=== PATIENT | female | born 1970 | race Caucasian/White ===

== ENCOUNTER → 2018-10-10 16:00 | Outpatient (CLI) | payer OTHER, SELFPAY ==
--- NOTE | 2018-10-10 | DI.MRI.S_ITS ---
PROCEDURE: MR PELVIS WO/W CON INDICATIONS: Abnormal uterine and vaginal bleeding TECHNIQUE: Coronal HASTE, sagittal breath-hold T2 FSE; axial T1 FSE with and without fat saturation through the pelvis. Optional long- and short-axis uterine nonbreath-hold T2 FSE through the uterus. Sagittal or axial dynamic VIBE during administration of contrast. Post-contrast axial or coronal VIBE/2-D FLASH with fat saturation from the iliac crests to the symphysis. Optional diffusion weighted imaging and ADC may be performed. COMPARISON: [facility], , US PELVIS/TRANSVAG/DOPPLER, 09/22/2018, 12:40. FINDINGS: Image quality: There is motion artifact limiting evaluation. Uterus: Uterus is elongated in appearance. Endometrium is normal in thickness with mild nodularity along its contours. Junctional zone is normal in thickness at 12 mm or less. There are a few small nabothian cysts. Follow contrast administration, there is prominent enhancement within the uterine fundus involving the junctional zone, myometrium and serosal surface. Adnexa: The ovaries are not well visualized likely reflecting atrophy. No adnexal masses. Urinary system: There is partial distention of the urinary bladder which demonstrates mild thickening and a trabeculated appearance. Distal ureters are non distended. Urethra appears normal in morphology. Nodes and vessels: No pelvic or inguinal adenopathy by size criteria. Iliac vessels are normal in size. Bowel and peritoneum: No pathologic free pelvic fluid. Inferior colon and small bowel loops are normal in caliber. Soft tissues: No inguinal hernias. No findings of pelvic floor incompetence in the absence of provocation. Bones: Marrow demonstrates normal overall signal. IMPRESSION: 1. Preferential enhancement of the uterus in the fundus without a discrete mass identified. The finding is nonspecific and may represent mild infectious or inflammatory process. Recommend correlation clinically. 2. Slight nodularity of the endometrial contours without discrete mass identified. The finding may also reflect an inflammatory or infectious endometritis. Consider further evaluation with sonohysterography or hysteroscopy. Dictated by: Damian Fountain M.D. on 10/10/2018 at 17:51 Approved by: Damian Fountain M.D. on 10/10/2018 at 18:09
== END ==
PROVIDERS: PCP Internal Medicine; Visit Provider Internal Medicine
DX: N93.8 Other specified abnormal uterine and vaginal bleeding (principal)
CPT/HCPCS: 72197; A9579

== ENCOUNTER 2018-12-08 12:16 | Day surgery (SDC) | payer OTHER, SELFPAY ==
[2018-12-08 13:26] VITALS: BP 117/79; PULSE 68; RESP 15; TEMP 36.3; O2SAT 98; BMI 27.1
--- NOTE | 2018-12-08 13:52 | PM.HP.1 ---
History of Present Illness History of Present Illness Date Patient Seen: 12/08/18 Time Patient Seen: 13:52 Chief complaint: [id number] Narrative: Patient presents for colorectal screening. They have never had any previous examination for such. Two episodes of blood per rectum several months ago nothing further. No nausea, vomiting, abdominal pain, loss of appetite, unexplained weight loss, change in bowel habits, diarrhea, constipation. Patient History Medical History (Acute) delivery delivered (Acute) Surgical History History of appendectomy (Acute) Family History (Updated 12/08/18 @ 13:50 by Makenzie Peña RN) Father Heart attack Mother CVA (cerebral vascular accident) Social History household members: spouse Family & Social History Family History Father Heart attack Mother CVA (cerebral vascular accident) Social History: household members spouse Meds Home Medications and Allergies Home Medications Medication Instructions Recorded Confirmed Type Aspir-81 81 mg PO DAILY 12/08/18 12/08/18 History lisinopril 5 mg PO DAILY 12/08/18 12/08/18 History simvastatin 40 mg PO DAILY 12/08/18 12/08/18 History Allergies Allergy/AdvReac Type Severity Reaction Status Date / Time nicotine Allergy Severe Hives Verified 12/08/18 13:52 bupropion [From Zyban] Allergy Intermediate Rash Verified 12/08/18 13:53 varenicline [From Chantix] Allergy Intermediate Rash Verified 12/08/18 13:54 Review of Systems Review of Systems ROS Unobtainable: All systems reviewed & are unremarkable except as noted in HPI and below Exam Vital Signs (past 8 hours): - 12/08/18 13:26 Temperature 97.3 F L Pulse Rate 68 Respiratory Rate 15 Blood Pressure 117/79 Pulse Oximetry 98 Oxygen Delivery Method Room Air Narrative Exam Narrative: General-adult female no acute distress, well nourished HEENT-moist mucous membranes, no scleral icterus Neck-supple with full range of motion, no lymphadenopathy Chest- no labored respirations, clear to auscultation bilaterally Cardiac-regular rate and rhythm Abdomen-soft, nontender, non distended Extremities-no edema, warm well perfused Neurological-alert and oriented x 3. No focal deficits Skin-normal temperature and turgor, no rashes or ulcers Assessment & Plan Assessment and plan (1) Encounter for screening colonoscopy: Current visit: Yes Status: Acute Assessment & Plan narrative: Patient is requiring colorectal screening. Colonoscopy is recommended. Technical details were discussed. Risks, benefits, alternatives explained. Risks including but not limited to sedation, aspiration, bleeding, pain, missed lesion, incomplete examination, need for further radiographic studies, colonic perforation, need for major abdominal surgery, and all attendant risks major surgery were discussed at length. All questions were answered to their satisfaction, and they voiced understanding.
[2018-12-08] MEDS: fentaNYL 250 MCG/5 ML INJ IV (14:20)
[2018-12-08] MEDS: MIDAZOLAM 5 MG/5 ML VIAL IV (14:25)
[2018-12-08 14:44] VITALS: BP 104/68; PULSE 56; RESP 18; TEMP 36.5; O2SAT 99
[2018-12-08 14:49] VITALS: BP 112/77; PULSE 64; RESP 12; O2SAT 100
[2018-12-08 14:54] VITALS: BP 110/70; PULSE 60; RESP 14; O2SAT 100
[2018-12-08 14:59] VITALS: BP 117/78; PULSE 56; RESP 15; O2SAT 100
[2018-12-08 15:42] VITALS: BP 129/80; PULSE 56; RESP 16; TEMP 36.4; O2SAT 100
--- NOTE | 2018-12-08 15:46 | PM.OP.ENDO ---
Operative Date/Time/Diagnoses Date of procedure: 12/08/18 Time of procedure: 15:46 Pre-op diagnosis: rectal bleeding Post-op diagnosis: same Procedure & Clinicians Study performed: Colonoscopy Same procedure as scheduled: Yes Indications: 48-year-old female with 2 episodes of rectal bleeding presents for screening colonoscopy. Surgeon: Chico Velazquez Procedure Notes SCOAP/Timeout: Performed Procedure in detail: A digital rectal exam was performed which was negative for masses. There was no evidence of external hemorrhoids. The scope was carefully inserted into the rectum and advanced with colon to the ileocecal valve. Upon reaching the of valve the scope was then carefully withdrawn. The quality of the prep was excellent. There were no masses polyps or diverticulosis. The scope was retroflexed within the rectum and there was no evidence of internal hemorrhoids. Scope withdrawal time: 8 Sedation minutes: 23 Specimen(s): none sent Complications: none Impression: Normal colonoscopy Post-procedure Recommendations: Colonscopy in 10 years Disposition: same day surgery
== END 2018-12-08 15:49 | disposition home or self-care (01) ==
PROVIDERS: PCP Internal Medicine; Visit Provider Surgery
PROC: 0DJD8ZZ Inspection of Lower Intestinal Tract, Via Natural or Artificial Opening Endoscopic (ICD-10-PCS; CPT 45378; principal; 2018-12-08 14:00)
DX: K62.5 Hemorrhage of anus and rectum (principal)
CPT/HCPCS: 45378; 99152; J2250; J3010

== ENCOUNTER → 2021-02-17 16:48 | Outpatient (CLI) | payer OTHER, SELFPAY ==
--- NOTE | 2021-02-17 | DI.MG.S_ITS ---
BILATERAL DIGITAL SCREENING MAMMOGRAM 3D/2D WITH CAD: 02/17/2021 CLINICAL: Routine screening. Baseline exam by default. No prior exams were available for comparison. There are scattered fibroglandular elements in both breasts. Current study was also evaluated with a Computer Aided Detection (CAD) system. No significant masses, calcifications, or other findings are seen in either breast. IMPRESSION: NEGATIVE There is no mammographic evidence of malignancy. A 1 year screening mammogram is recommended. This exam was interpreted at Station ID: [id number]. NOTE: For mammograms, a report in lay terms will be sent to the patient. Approximately 15% of breast malignancies will not be visualized mammographically. In the management of a palpable breast mass, a negative mammogram must not discourage biopsy of a clinically suspicious lesion. Electronically Signed By: Lia lopes/dk:02/18/2021 11:04:18 letter sent: Normal Exam ACR BI-RADS Category 1: Negative [id number]
== END ==
PROVIDERS: PCP Internal Medicine; Referring Provider Internal Medicine; Visit Provider Internal Medicine
DX: Z12.31 Encounter for screening mammogram for malignant neoplasm of breast (principal)
CPT/HCPCS: 77063; 77067